=== PATIENT | male | born 1980 ===

== ENCOUNTER 2017-07-27 18:31 | Emergency (ER) | payer SELFPAY ==
[~2017-07-27] VITALS: Ht 172.7 cm; Wt 93.0 kg
[2017-07-27 18:55] VITALS: BP 115/73
== END 2017-07-27 20:19 | disposition home or self-care (01) ==
LOC: ER 18:31
DX: S00.81XA Abrasion of other part of head, initial encounter (principal); S09.90XA Unspecified injury of head, initial encounter; F17.210 Nicotine dependence, cigarettes, uncomplicated; Y08.89XA Assault by other specified means, initial encounter; Y93.89 Activity, other specified; Y99.8 Other external cause status; Y92.89 Other specified places as the place of occurrence of the external cause
CPT/HCPCS: 70450